=== PATIENT | female | born 1995 | race Caucasian/White ===

== ENCOUNTER 2018-01-13 12:09 | Emergency (ER) | payer OTHER ==
[~2018-01-13] VITALS: Ht 157.5 cm; Wt 74.8 kg
[2018-01-13 12:13] VITALS: Ht 157.5 cm; Wt 74.8 kg
[2018-01-13 12:54] LABS: CALCIUM 8.5 mg/dL (8.5-10.1); CARBON DIOXIDE 21.9 mmol/L (21-32); CHLORIDE SERUM 104 mmol/L (98-107); CREATININE SERUM 0.6 mg/dL (0.6-1.0); GFR1 > 60 mL/min; GLUCOSE SERUM 108 mg/dL (74-106); POTASSIUM SERUM 3.5 mmol/L (3.5-5.1); SODIUM SERUM 139 mmol/L (136-145)
[2018-01-13 12:58] LABS: ALKALINE PHOSPHATASE 94 U/L (46-116); ALT/SGPT 27 U/L (14-59); AMYLASE 51 U/L (25-115); AST/SGOT 25 U/L (15-37); BASOPHIL % 0.1 % (0-2); BILIRUBIN TOTAL 0.18 mg/dL (0.20-1.00); LIPASE 76 IU/L (73-393); PLATELET COUNT 267 x10^3mcL (130-400)
[2018-01-13 13:00] LABS: RED CELL DISTRIBUTION WIDTH 15.6 % (11.5-14.5)
[2018-01-13 14:38] VITALS: BP 102/52
== END 2018-01-13 14:38 | disposition home or self-care (01) ==
LOC: ED 12:09
PROVIDERS: Specialist
DX: O26.892 Other specified pregnancy related conditions, second trimester (principal); Z3A.20 20 weeks gestation of pregnancy
CPT/HCPCS: 36415; 83880; Q0092